=== PATIENT | male | born 1965 | race Caucasian/White ===

== ENCOUNTER 2016-10-18 11:11 | Outpatient (CLI) | payer BC, OTHER | END 2016-10-18 11:12 | disposition home or self-care (01) | DX: E06.3 Autoimmune thyroiditis (principal) ==

== ENCOUNTER 2016-10-28 07:11 | Outpatient (CLI) | payer OTHER | END 2016-10-28 07:12 | disposition home or self-care (01) | DX: E06.3 Autoimmune thyroiditis (principal) ==

== ENCOUNTER 2017-01-23 08:59 | Outpatient (CLI) | payer OTHER | END 2017-01-23 09:00 | disposition short-term general hospital (02) | LOC: EMS 08:59 | PROVIDERS: ATTEND Surgery | DX: S61.217A Laceration without foreign body of left little finger without damage to nail, initial encounter (principal); S61.215A Laceration without foreign body of left ring finger without damage to nail, initial encounter; W31.2XXA Contact with powered woodworking and forming machines, initial encounter | CPT/HCPCS: A0170; A0425; A0427 ==

== ENCOUNTER 2019-01-19 07:15 | Outpatient (CLI) | payer OTHER ==
[2019-01-19 11:10] LABS: THYROID STIMULATING HORMONE 0.99 uIU/mL (0.34-5.60)
[2019-01-19 11:12] LABS: FREE T4 (FREE THYROXINE) 0.65 ng/dL (0.58-1.64)
[2019-01-20 10:17] LABS: HOMOCYSTEINE 9.6 umol/L (<11.4)
== END 2019-01-19 07:16 | disposition home or self-care (01) ==
LOC: LAB.F 07:15
PROVIDERS: ATTEND Naturopath
DX: E06.3 Autoimmune thyroiditis (principal); L40.0 Psoriasis vulgaris
CPT/HCPCS: 36415; 83090; 84439; 84443; 84481; 84482; 85651; 86141; 86376; 86800

== ENCOUNTER 2019-04-06 07:01 | Outpatient (CLI) | payer OTHER ==
[2019-04-06 16:02] LABS: THYROID STIMULATING HORMONE 1.61 uIU/mL (0.34-5.60)
[2019-04-06 16:03] LABS: FREE T4 (FREE THYROXINE) 0.91 ng/dL (0.58-1.64)
[2019-04-10 12:53] LABS: ANA SCREEN POSITIVE (NEGATIVE)
== END 2019-04-06 07:02 | disposition home or self-care (01) ==
LOC: LAB.S 07:01
PROVIDERS: ATTEND Naturopath
DX: E06.3 Autoimmune thyroiditis (principal); L40.0 Psoriasis vulgaris
CPT/HCPCS: 36415; 84439; 84443; 84481; 86038; 86141; 86376; 86800

== ENCOUNTER 2019-05-23 07:05 | Outpatient (CLI) | payer OTHER | END 2019-05-23 07:06 | disposition home or self-care (01) | LOC: LAB.S 07:05 | PROVIDERS: ATTEND Naturopath | DX: E06.3 Autoimmune thyroiditis (principal) | CPT/HCPCS: 36415; 84439; 84443; 84481; 84482 ==

== ENCOUNTER 2021-08-31 02:25 | Outpatient (CLI) | payer OTHER | END 2021-08-31 02:26 | disposition critical access hospital (66) | LOC: EMS 02:25 | DX: R07.9 Chest pain, unspecified (principal) | CPT/HCPCS: A0425; A0427 ==

== ENCOUNTER 2021-08-31 03:03 | Emergency (ER) | payer OTHER ==
[2021-08-31] MEDS ORDERED: MORPHINE 2 MG/ML CARPUJECT IVP STA ×2 (03:13→04:33)
[2021-08-31] MEDS ORDERED: SODIUM CHLORIDE 0.9% 1,000 ML IV STA ×2 (03:13→04:59)
[2021-08-31] MEDS ORDERED: ONDANSETRON 4 MG/2 ML VIAL IVP STA (03:13)
[2021-08-31] MEDS ORDERED: PANTOPRAZOLE 40 MG VIAL IVP STA (03:13)
--- NOTE | 2021-08-31 03:17 | ED Physician Documentation ---
PD HPI CHEST PAIN - Stated complaint Stated Complaint: CP - Chief complaint Chief Complaint: Cardiac - Additional information Additional information: Patient is a 56-year-old male presenting to the emergency department with chief complaint chest pain. Brought in by EMS after he woke from sleep at approximately midnight with substernal chest pain. Reports initially thought it was his regular indigestion however his symptoms were far more severe. He reports he took a Prilosec at home with no relief. EMS report that he received aspirin and nitroglycerin and after receiving nitroglycerin had a syncopal episode in the field. 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 Denies any history of hypertension, dyslipidemia, diabetes, relevant family cardiac history, blood clots, travel, or recent hospitalizations. Review of Systems Ten Systems: 10 systems reviewed and negative Constitutional: denies: Fever Eyes: denies: Loss of vision Ears: denies: Loss of hearing Nose: denies: Rhinorrhea / runny nose Throat: denies: Dental pain / toothache Cardiac: reports: Chest pain / pressure GI: denies: Abdominal Pain, Nausea, Vomiting : denies: Dysuria Skin: reports: Rash PD PAST MEDICAL HISTORY - Past Medical History Endocrine/Autoimmune: HyPOthyroidism (Анна's) GI: GERD Psych: ADD/ADHD - Present Medications Home Medications: Ambulatory Orders Medication Instructions Recorded Confirmed Amphetamine [Adzenys Xr-Odt] 18.8 mg PO DAILY 08/31/21 08/31/21 Azithromycin [Zithromax] 0 mg PO DAILY #4 tablet 08/31/21 Dextroamphetamine/Amphetamine 10 mg PO DAILY 08/31/21 08/31/21 [Adderall 10 mg Tablet] Ibuprofen [Motrin] 800 mg PO Q8H PRN #30 tablet 08/31/21 Thyroid,Pork [[place] Thyroid] 120 mg PO DAILY 08/31/21 08/31/21 - Allergies Allergies/Adverse Reactions: Allergies Allergy/AdvReac Type Severity Reaction Status Date / Time No Known Drug Allergies Allergy Verified 08/31/21 03:17 PD ED PE NORMAL - Vitals Vital signs reviewed: Yes - General General: Alert and oriented X 3. No: No acute distress - HEENT HEENT: Atraumatic, PERRL, EOMI - Neck Neck: Supple, no meningeal sign, No bony TTP, No adenopathy, Thyroid normal, No JVD - Cardiac Cardiac: RRR, No murmur, No gallop, No rub, Strong equal pulses - Respiratory Respiratory: No respiratory distress, Clear bilaterally - Abdomen Abdomen: Normal bowel sounds, Soft, Non tender - Male Male : Deferred - Rectal Rectal: Deferred - Derm Derm: Normal color - Extremities Extremities: No deformity, No tenderness to palpate, No edema - Neuro Neuro: Alert and oriented X 3 Results - Vitals Vitals: Vital Signs - 24 hr 08/31/21 08/31/21 08/31/21 03:02 03:05 03:26 Temperature 36.2 C L Heart Rate 76 81 Respiratory 24 26 H Rate Blood Pressure 113/90 H 125/83 H Blood Pressure 113/90 H [Left] O2 Saturation 98 100 08/31/21 08/31/21 08/31/21 03:41 04:00 04:33 Temperature Heart Rate 74 81 84 Respiratory 24 19 36 H Rate Blood Pressure 124/86 H 124/90 H 108/89 H Blood Pressure [Left] O2 Saturation 99 100 100 08/31/21 08/31/21 08/31/21 05:00 05:30 06:02 Temperature 36.1 C L 36.6 C Heart Rate 86 90 86 Respiratory 28 H 21 30 H Rate Blood Pressure 119/85 H 115/81 H 124/92 H Blood Pressure [Left] O2 Saturation 99 99 100 08/31/21 08/31/21 06:32 06:48 Temperature 36.3 C L 36.4 C L Heart Rate 81 79 Respiratory 22 19 Rate Blood Pressure 132/93 H 125/99 H Blood Pressure [Left] O2 Saturation 100 99 Oxygen O2 Source Room air - EKG (time done) 0305 Rate: Rate (enter#) (70) Rhythm: NSR [place]: Normal Intervals: Normal [place] QRS: Normal Ischemia: Normal ST segments. No: Hyperacute T waves, T wave inversion Computer interpretation: Agree with computer 0435 Rate: Rate (enter#) (77) Rhythm: NSR [place]: Normal Intervals: Normal [place], QRS normal QRS: Normal Ischemia: Normal ST segments. No: Hyperacute T waves Compare to prior EKG: Unchanged from prior EKG - Labs Labs: Laboratory Tests 08/31/21 08/31/21 08/31/21 03:10 03:10 03:10 WBC 10.8 RBC 4.57 L Hgb 13.7 L Hct 41.5 L MCV 90.8 MCH 30.0 MCHC 33.0 RDW 13.0 Plt Count 282 MPV 8.6 Neut # (Auto) 7.7 H Lymph # (Auto) 1.8 [place] # (Auto) 0.9 Eos # (Auto) 0.2 Baso # (Auto) 0.1 Absolute Nucleated RBC 0.00 Nucleated RBC % 0.0 Sodium Potassium Chloride Carbon Dioxide Anion Gap BUN Creatinine Estimated GFR (MDRD) Glucose Calcium Total Bilirubin AST ALT Alkaline Phosphatase Troponin I High Sens B-Natriuretic Peptide 17 Total Protein Albumin Globulin Albumin/Globulin Ratio Lipase Nasal Adenovirus (PCR) Nasal B. parapertussis DNA (PCR) Nasal Coronavir 229E PCR Nasal Coronavir HKU1 PCR Nasal Coronavir NL63 PCR Nasal Coronavir OC43 PCR Nasal Enterovir/Rhinovir PCR Nasal Influenza B PCR Nasal Influenza A PCR Nasal Parainfluen 1 PCR Nasal Parainfluen 2 PCR Nasal Parainfluen 3 PCR Nasal Parainfluen 4 PCR Nasal RSV (PCR) Nasal B.pertussis DNA PCR Nasal C.pneumoniae (PCR) Caleb Human Metapneumo PCR Nasal M.pneumoniae (PCR) Nasal SARS-CoV-2 (PCR) Urine Opiates Screen Ur Oxycodone Screen Urine Methadone Screen Ur Propoxyphene Screen Ur Barbiturates Screen Ur Tricyclics Screen Ur Phencyclidine Scrn Ur Amphetamine Screen U Methamphetamines Scrn U Benzodiazepines Scrn Urine Cocaine Screen U Cannabinoids Screen Ethyl Alcohol < 5.0 08/31/21 08/31/21 08/31/21 03:10 03:10 04:00 WBC RBC Hgb Hct MCV MCH MCHC RDW Plt Count MPV Neut # (Auto) Lymph # (Auto) [place] # (Auto) Eos # (Auto) Baso # (Auto) Absolute Nucleated RBC Nucleated RBC % Sodium 134 L Potassium 4.1 Chloride 103 Carbon Dioxide 25 Anion Gap 6.0 BUN 13 Creatinine 0.8 Estimated GFR (MDRD) 100 Glucose 102 H Calcium 8.5 Total Bilirubin 0.5 AST 17 ALT 19 Alkaline Phosphatase 60 Troponin I High Sens 2.7 B-Natriuretic Peptide Total Protein 6.1 L Albumin 3.5 Globulin 2.6 Albumin/Globulin Ratio 1.3 Lipase 20 L Nasal Adenovirus (PCR) NOT DETECTED Nasal B. parapertussis DNA (PCR) NOT DETECTED Nasal Coronavir 229E PCR NOT DETECTED Nasal Coronavir HKU1 PCR NOT DETECTED Nasal Coronavir NL63 PCR NOT DETECTED Nasal Coronavir OC43 PCR NOT DETECTED Nasal Enterovir/Rhinovir PCR NOT DETECTED Nasal Influenza B PCR NOT DETECTED Nasal Influenza A PCR NOT DETECTED Nasal Parainfluen 1 PCR NOT DETECTED Nasal Parainfluen 2 PCR NOT DETECTED Nasal Parainfluen 3 PCR NOT DETECTED Nasal Parainfluen 4 PCR NOT DETECTED Nasal RSV (PCR) NOT DETECTED Nasal B.pertussis DNA PCR NOT DETECTED Nasal C.pneumoniae (PCR) NOT DETECTED Caleb Human Metapneumo PCR NOT DETECTED Nasal M.pneumoniae (PCR) NOT DETECTED Nasal SARS-CoV-2 (PCR) NOT DETECTED Urine Opiates Screen Ur Oxycodone Screen Urine Methadone Screen Ur Propoxyphene Screen Ur Barbiturates Screen Ur Tricyclics Screen Ur Phencyclidine Scrn Ur Amphetamine Screen U Methamphetamines Scrn U Benzodiazepines Scrn Urine Cocaine Screen U Cannabinoids Screen Ethyl Alcohol 08/31/21 08/31/21 05:44 06:25 WBC RBC Hgb Hct MCV MCH MCHC RDW Plt Count MPV Neut # (Auto) Lymph # (Auto) [place] # (Auto) Eos # (Auto) Baso # (Auto) Absolute Nucleated RBC Nucleated RBC % Sodium Potassium Chloride Carbon Dioxide Anion Gap BUN Creatinine Estimated GFR (MDRD) Glucose Calcium Total Bilirubin AST ALT Alkaline Phosphatase Troponin I High Sens 4.7 B-Natriuretic Peptide Total Protein Albumin Globulin Albumin/Globulin Ratio Lipase Nasal Adenovirus (PCR) Nasal B. parapertussis DNA (PCR) Nasal Coronavir 229E PCR Nasal Coronavir HKU1 PCR Nasal Coronavir NL63 PCR Nasal Coronavir OC43 PCR Nasal Enterovir/Rhinovir PCR Nasal Influenza B PCR Nasal Influenza A PCR Nasal Parainfluen 1 PCR Nasal Parainfluen 2 PCR Nasal Parainfluen 3 PCR Nasal Parainfluen 4 PCR Nasal RSV (PCR) Nasal B.pertussis DNA PCR Nasal C.pneumoniae (PCR) [place]aleb Human Metapneumo PCR Nasal M.pneumoniae (PCR) Nasal SARS-CoV-2 (PCR) Urine Opiates Screen POSITIVE H Ur Oxycodone Screen NEGATIVE Urine Methadone Screen NEGATIVE Ur Propoxyphene Screen NEGATIVE Ur Barbiturates Screen NEGATIVE Ur Tricyclics Screen NEGATIVE Ur Phencyclidine Scrn NEGATIVE Ur Amphetamine Screen POSITIVE H U Methamphetamines Scrn NEGATIVE U Benzodiazepines Scrn NEGATIVE Urine Cocaine Screen NEGATIVE U Cannabinoids Screen NEGATIVE Ethyl Alcohol PD MEDICAL DECISION MAKING - ED course Complexity details: reviewed results, re-evaluated patient, d/w patient, other ED course: Patient is 56-year-old male presenting to the emergency department brought in by EMS with chest pain. Patient endorses a longstanding history of smoking as well as history of Анна's thyroiditis on thyroid supplementation, ADHD for which he takes Adderall, and gastric reflux for which he takes Prilosec. Arrived today with acute onset chest pain that woke him from sleep at around midnight. Afebrile, hemodynamically stable but in a modest amount of acute distress on arrival to the emergency department. Did order for medication for pain, nausea and IV hydration. Initial and repeat EKGs were negative for any indications of acute cardiac ischemia or dysrhythmia. Serial troponins negative. Chest x-ray did have some nonspecific findings concerning for possible viral pneumonia and I did order for respiratory panel which was negative for any acute viral infection including any indications of active COVID-19 infection. Patient remained significantly distressed and required multiple doses of medication for pain in the emergency department. Given his presentation and ongoing distress I did elect to obtain advanced imaging of his lungs which were negative for any pulmonary emboli, or intrathoracic pathology however redemonstrated the findings of multi lobar, likely viral pneumonia. Patient received dose of his Zithromax in the emergency department to cover for any possible developing bacterial pneumonia however notably he is afebrile and did not have any elevation in white blood cell count. He was observed in the emergency department for several hours. At this time will discharge on a ongoing course of Zithromax. Additionally wrote prescription for Motrin for him to orange picker at his local pharmacy for ongoing chest discomfort. Encouraged careful follow-up with primary care as well as smoking cessation. Otherwise clear return precautions and follow-up instructions were given prior to discharge. Departure - Departure Disposition: 01 Home, Self Care Clinical Impression: Atypical chest pain, PNA (pneumonia), Nicotine dependence with current use Condition: Fair Instructions: Tips Cardiovascular Quit Smoking, Quit Smoking Plan, Smoke Free Stay, Smoke Free Benefits, ED Chest Pain Atypical Unkn Cause, ED Chest Pain Pleurisy, ED Pneumonia Adult Prescriptions: Ibuprofen [Motrin] 800 mg PO Q8H PRN #30 tablet PRN Reason: PAIN &/OR FEVER Azithromycin [Zithromax] 0 mg PO DAILY #4 tablet Comments: Thank you for allowing us to care for you today at [facility]. Your prescriptions were sent electronically to [facility] in [place]. All of the testing performed in the emergency department today including your EKG, the imaging of your lungs, and all of your lab work were all very reassuring. I do not see any indication of injury to your heart however the imaging of your lungs did show potential developing infection and I would like you to begin a course of oral antibiotics. You received your first dose here in the emergency department. Please fill your prescription and take your next dose tomorrow. I would like to recommend the also consider quitting smoking. I know that this can be very difficult but I have attached some information about strategies that can be helpful. Please do follow-up with your primary care doctor as soon as able. If it anytime you have any new or worsening symptoms please do not hesitate to return to the emergency department.
[2021-08-31 04:30] LABS: HGB - HEMOGLOBIN 13.7 g/dL (14.0-18.0); RED BLOOD COUNT 4.57 10^6/uL (4.70-6.10); WHITE BLOOD COUNT 10.8 x10^3/uL (4.8-10.8)
[2021-08-31 04:31] LABS: BASOPHILS # (AUTO) 0.1 10^3/uL (0.0-0.1); BASOPHILS % (AUTO) 0.6 %; EOSINOPHILS # (AUTO) 0.2 10^3/uL (0.0-0.7); EOSINOPHILS % (AUTO) 2.2 %; HCT - HEMATOCRIT 41.5 % (42.0-52.0); LYMPHOCYTES # (AUTO) 1.8 10^3/uL (1.5-3.5); LYMPHOCYTES % (AUTO) 16.7 %; MEAN CORPUSCULAR VOLUME 90.8 fL (80.0-94.0); MEAN PLATELET VOLUME 8.6 fL (7.4-11.4); MONOCYTES # (AUTO) 0.9 10^3/uL (0.0-1.0); MONOCYTES % (AUTO) 8.4 %; NEUTROPHILS # (AUTO) 7.7 10^3/uL (1.5-6.6); NEUTROPHILS % (AUTO) 71.8 %; PLT - PLATELET COUNT 282 10^3/uL (130-450)
[2021-08-31 04:41] LABS: ALBUMIN 3.5 g/dL (3.2-5.5); ALBUMIN/GLOBULIN RATIO 1.3 (1.0-2.2); BILIRUBIN,TOTAL 0.5 mg/dL (0.2-1.0); CALCIUM 8.5 mg/dL (8.5-10.3); CREATININE 0.8 mg/dL (0.6-1.2); POTASSIUM 4.1 mmol/L (3.5-5.0); TOTAL PROTEIN 6.1 g/dL (6.7-8.2)
[2021-08-31] MEDS ORDERED: MAG HYDROX/AL HYDROX/SIMETH 30 ML UDC PO STA (04:57)
[2021-08-31] MEDS ORDERED: LIDOCAINE VISCOUS 2% 15 ML UDC MM STA (04:57)
[2021-08-31] MEDS ORDERED: IOPAMIDOL-300 100 ML VIAL ONE (05:07)
[2021-08-31] MEDS ORDERED: MAG HYDROX/AL HYDROX/SIMETH 30 ML UDC ONE (05:08)
[2021-08-31] MEDS ORDERED: IOPAMIDOL-300 100 ML VIAL IVP ONE (05:33)
[2021-08-31 05:49] LABS: MUDS CUTOFF CONCENTRATIONS CUTOFF CONC BELOW:
[2021-08-31 05:52] LABS: B. PARAPERTUSSIS- RESP PCR PAN NOT DETECTED; B. PERTUSSIS- RESP PCR PANEL NOT DETECTED; C. PNEUMONIAE- RESP PCR PANEL NOT DETECTED; CORONAVIRUS 229E-RESP PCR NOT DETECTED; CORONAVIRUS HKU1-RESP PCR NOT DETECTED; CORONAVIRUS NL63-RESP PCR NOT DETECTED; CORONAVIRUS OC43-RESP PCR NOT DETECTED; HUMAN METAPNEUMOVIRUS NOT DETECTED; INFLUENZA A- RESP PCR PANEL NOT DETECTED; INFLUENZA B - RESP PCR PANEL NOT DETECTED; M. PNEUMONIAE- RESP PCR PANEL NOT DETECTED; PARAINFLUENZA VIRUS 1 NOT DETECTED; PARAINFLUENZA VIRUS 2 NOT DETECTED; PARAINFLUENZA VIRUS 3 NOT DETECTED; PARAINFLUENZA VIRUS 4 NOT DETECTED; RHINOVIRUS/ENTEROVIRUS NOT DETECTED; RSV- RESP PCR PANEL NOT DETECTED; SARS-CoV-2 -RESP PCR PANEL NOT DETECTED
[2021-08-31 06:01] LABS: COCAINE SCREEN URINE NEGATIVE (NEGATIVE); METHAMPHETAMINES SCREEN, URINE NEGATIVE (NEGATIVE); THC CANNABINOID SCREEN, URINE NEGATIVE (NEGATIVE)
[2021-08-31 06:02] LABS: AMPHETAMINE SCREEN,URINE POSITIVE (NEGATIVE); BARBITURATE SCREEN,UR NEGATIVE (NEGATIVE); BENZODIAZEPINES SCREEN, URINE NEGATIVE (NEGATIVE); METHADONE SCREEN, URINE NEGATIVE (NEGATIVE); OPIATE SCREEN, URINE POSITIVE (NEGATIVE); OXYCODONE SCREEN, URINE NEGATIVE (NEGATIVE); PROPOXYPHENE SCREEN, URINE NEGATIVE (NEGATIVE); TRICYCLIC ANTIDEPRESSANT,URINE NEGATIVE (NEGATIVE)
[2021-08-31] MEDS ORDERED: AZITHROMYCIN 250 MG TABLET PO STA (06:09)
[2021-08-31 06:50] VITALS: BP 125/99
--- NOTE | 2021-08-31 07:56 | XRAY Report ---
PROCEDURE: Chest 1 View X-Ray INDICATIONS: chest pain TECHNIQUE: One view of the chest was acquired. COMPARISON: None. FINDINGS: Surgical changes and devices: None. Lungs and pleura: No pleural effusions or pneumothorax. Mild reticular opacities are seen in the azra g bases bilaterally. Mediastinum: Mediastinal contours appear normal. Heart size is normal. Bones and chest wall: No suspicious bony lesions. Overlying soft tissues appear unremarkable. IMPRESSION: Mild reticular opacities in the lung bases are nonspecific and could represent atelectasis, interstit ial edema, atypical infection, or chronic interstitial changes. There is no significant discrepancy when compared with the overnight teleradiology report. Reviewed by: Romulo Marquis MD on 08/31/2021 7:54 AM [facility] Approved by: Romulo Marquis MD on 08/31/2021 7:54 AM [facility] Station ID: [id number]
--- NOTE | 2021-08-31 08:05 | CT Report ---
PROCEDURE: ANGIO CHEST W/WO INDICATIONS: Chest pain, rule out PE CONTRAST: IV CONTRAST: Isovue 300 ml: 100 PO CONTRAST: *NO PO CONTRAST TECHNIQUE: After the administration of intravenous contrast, 2 mm axial images were acquired from the pulmonary apices to the posterior costophrenic angles during the arterial phase. In addition, 1 mm lung kernel and 5 mm soft tissue kernel reconstructions were performed. 3-dimensional coronal oblique maximum int ensity projection (MIP) reformats, 8 mm axial MIP, and 5 mm coronal and sagittal MPR reformats were t hen performed through the thorax. For radiation dose reduction, the following was used: automated exp osure control, adjustment of mA and/or kV according to patient size. COMPARISON: Chest radiograph 08/31/2021 FINDINGS: Image quality: Excellent. Pulmonary arteries: Pulmonary arteries are normal in size, and demonstrate no intraluminal filling d efects to suggest central pulmonary embolism. Lungs and pleura: Reticulations and ground glass opacities predominantly within the lung bases most l ikely due to atelectasis related to nonbreath-hold technique. There is mild respiratory motion. No pl eural effusions or pneumothorax. Central and peripheral airways are patent. Mediastinum: Heart size is normal, without pericardial effusion. No mediastinal or hilar adenopathy . Thoracic aorta is normal in caliber and enhancement. Esophagus is normal in caliber, without hiat al hernia. Bones and chest wall: No suspicious bony lesions. No acute vertebral compression fracture. No axilla ry or supraclavicular adenopathy. The thyroid is poorly visualized. Abdomen: Visualized upper abdominal solid organs appear normal in the early arterial phase of enhanc ement. IMPRESSION: 1.No acute pulmonary embolus. 2.Reticulations and ground glass opacities in the lung bases are most likely secondary to atelectasis , although an atypical pneumonia or mild pulmonary edema could appear similarly. There is no significant discrepancy when compared with the overnight teleradiology report. Reviewed by: Romulo Marquis MD on 08/31/2021 8:03 AM [facility] Approved by: Romulo Marquis MD on 08/31/2021 8:03 AM PST Station ID: [id number]
== END 2021-08-31 07:05 | disposition home or self-care (01) ==
LOC: EDUNIT# → ED 03:03
DX: R07.89 Other chest pain (principal); J18.9 Pneumonia, unspecified organism; F17.200 Nicotine dependence, unspecified, uncomplicated; Z20.822 Contact with and (suspected) exposure to COVID-19; R55 Syncope and collapse; R11.0 Nausea; E06.3 Autoimmune thyroiditis; K21.9 Gastro-esophageal reflux disease without esophagitis; F90.9 Attention-deficit hyperactivity disorder, unspecified type
CPT/HCPCS: 0202U; 36415; 71045; 71275; 80053; 80306; 80320; 83690; 83880; 84484; 85025; 93005; 96374; 96375; 96376; 99283; 99284; A9270; Q9967

== ENCOUNTER 2021-09-18 10:38 | Outpatient (CLI) | payer OTHER ==
--- NOTE | 2021-09-18 15:52 | XRAY Report ---
PROCEDURE: Chest 2 View X-Ray INDICATIONS: CHRONIC COUGHING SPASMS TECHNIQUE: 2 view(s) of the chest. COMPARISON: None. FINDINGS: Surgical changes and devices: None. Lungs and pleura: No pleural effusions or pneumothorax. Increased bronchovascular markings in bilate ral hilar region are seen with mild bronchial wall thickening. No definite focal infiltrate. Mediastinum: Mediastinal contours are normal. Heart size is normal. Bones and chest wall: No suspicious bony abnormalities. Soft tissues appear unremarkable. IMPRESSION: Injection of mild reactive airway disease such as bronchitis or asthma. No focal infiltr ate, pleural effusion or pneumothorax. Reviewed by: Luis Walton MD on 09/18/2021 3:50 PM PST Approved by: Luis Walton MD on 09/18/2021 3:50 PM PST Station ID: [id number]
== END 2021-09-18 10:39 | disposition home or self-care (01) ==
LOC: DI.S 10:38
PROVIDERS: ATTEND Naturopath
DX: J18.9 Pneumonia, unspecified organism (principal); F17.210 Nicotine dependence, cigarettes, uncomplicated

== ENCOUNTER 2021-10-02 08:04 | Outpatient (CLI) | payer OTHER ==
[2021-10-02 15:53] LABS: CRP HIGH SENSITIVITY 0.9 mg/L
[2021-10-02 16:29] LABS: THYROID STIMULATING HORMONE < 0.08 uIU/mL (0.34-5.60)
[2021-10-02 16:31] LABS: FREE T3 4.06 pg/mL (2.5-3.9); FREE T4 (FREE THYROXINE) 0.92 ng/dL (0.58-1.64)
[2021-10-02 20:57] LABS: ESTIMATED AVERAGE GLUCOSE 111 mg/dL (70-100); HEMOGLOBIN A1c% 5.5 % (4.27-6.07)
[2021-10-05 13:26] LABS: T3 REVERSE 9 ng/dL (8-25)
[2021-10-07 16:12] LABS: THYROID PEROXIDASE ANTIBODIES 74 IU/mL (<9)
== END 2021-10-02 08:05 | disposition home or self-care (01) ==
LOC: LAB.S 08:04
PROVIDERS: ATTEND Naturopath
DX: E06.3 Autoimmune thyroiditis (principal)
CPT/HCPCS: 36415; 82947; 83036; 84439; 84443; 84481; 84482; 86141; 86376; 86800